=== PATIENT | male | born 1985 | race Caucasian/White ===

== ENCOUNTER 2018-11-05 18:46 | Emergency (ER) | payer MEDICAID, OTHER ==
[~2018-11-05] VITALS: Ht 193 cm; Wt 76.2 kg
[~2018-11-05 18:46] MED LIST: ASPI81TA52 PO; CYCL-1 PO; FLO0.4C PO; HYDR2TAB28 PO; METO-467 PO; ONDA4TAB6 PO; VANC1VIA21 IV; VANC1VIA4 IV
[2018-11-05 18:54] VITALS: BP 185/88
== END 2018-11-06 04:45 | disposition left against medical advice (07) ==
LOC: ER 18:47
DX: M79.89 Other specified soft tissue disorders (principal); Z53.21 Procedure and treatment not carried out due to patient leaving prior to being seen by health care provider

== ENCOUNTER 2021-08-31 04:02 | Inpatient (IN) | payer MEDICAID, OTHER ==
[~2021-08-31] VITALS: Ht 193 cm; Wt 97.5 kg
[~2021-08-31 04:02] MED LIST changes: -VANC1VIA21 IV; +VANC1VIA38 IV
[2021-08-31] MEDS ORDERED: vancomycin/NS 1 GM ADD-VANTAGE 250 ML IV ONE ×2 (06:30→15:40)
[2021-08-31] MEDS ORDERED: piperacillin/tazo 4.5gm/100ml 100 ML IV ONE (06:35)
[2021-08-31] MEDS ORDERED: normal saline 1000ML IV soln IV ONE (09:20)
[2021-08-31 09:21] LABS: BASOPHILS # (AUTO) 0.1 X10'3 (0-0.2); BASOPHILS % (AUTO) 0.6 % (0-1); EOSINOPHILS # (AUTO) 0.2 X10'3 (0-0.9); EOSINOPHILS % (AUTO) 1.9 % (0-6); HEMATOCRIT 37.5 % (42.0-52.0); HEMOGLOBIN 12.8 g/dl (14.0-17.9); LYMPHOCYTES # (AUTO) 1.6 X10'3 (1.1-4.8); LYMPHOCYTES % (AUTO) 15.1 % (21-51); MEAN CORPUSCULAR HEMOGLOBIN 28.4 PG (27.0-31.0); MEAN CORPUSCULAR HGB CONC 34.1 g/dL (33.0-36.5); MEAN CORPUSCULAR VOLUME 83.3 FL (78-98); MEAN PLATELET VOLUME 7.7 FL (7.4-10.4); MONOCYTES # (AUTO) 1.4 X10'3 (0-0.9); NEUTROPHILS # (AUTO) 7.4 X10'3 (1.8-7.7); NEUTROPHILS % (AUTO) 69.4 % (42-75); PLATELET COUNT 361 X10'3 (140-440); RED CELL DISTRIBUTION WIDTH 13.7 % (11.5-14.5); WHITE BLOOD COUNT 10.7 X10'3 (4.5-11.0)
[2021-08-31 09:23] LABS: ALBUMIN 3.6 G/DL (3.4-5.0); ANION GAP 6 (8-16); BLOOD UREA NITROGEN 19 MG/DL (7-18); BUN/CREATININE RATIO 20.9 (5.4-32.0); CHLORIDE 101 MMOL/L (99-107); CREATININE 0.91 MG/DL (0.60-1.10); GLUCOSE 111 MG/DL (70-104); SODIUM 137 MMOL/L (135-145); eGFR > 90 ML/MIN
[2021-08-31 09:33] LABS: APTT 33 SECONDS (22-32)
--- NOTE | 2021-08-31 10:00 | NUR ---
pt's wrist where vancomycin is running in is red and hot to touch. iv line flushed with NS. md and pharmacist informed. will run vanco in at a slower rate per pharmacy.
[2021-08-31] MEDS ORDERED: acetaminophen 325mg tablet PO PRN ×2 (10:35)
[2021-08-31] MEDS ORDERED: morphine 2 MG/ML inj. syringe IV PRN ×3 (10:35→15:50)
[2021-08-31] MEDS ORDERED: potassium Cl 20 mEq SR tablet PO PRN ×2 (10:35)
[2021-08-31] MEDS ORDERED: magnesium 2GM in 50ml NS 50 ML IV PRN (10:35)
[2021-08-31] MEDS ORDERED: magnesium hydroxide 30ml (MOM) UD suspension PO PRN (10:35)
[2021-08-31] MEDS ORDERED: mag hydrox/Alum hydrox/simeth 30ml oral suspension PO PRN (10:35)
[2021-08-31] MEDS ORDERED: HYDROcodone/acetaminophen 10/325mg tab PO PRN (10:35)
[2021-08-31] MEDS ORDERED: ondansetron/PF 4mg/2ml inj IV PRN ×2 (10:35→15:50)
[2021-08-31] MEDS ORDERED: potassium CL 10mEq/100ml bag 100 ML IV PRN (10:35)
[2021-08-31] MEDS ORDERED: dextrose 5%-1/2 normal saline 1,000 ML IV SCH (10:35)
[2021-08-31] MEDS ORDERED: magnesium 4gm in 100ml NS 100 ML IV PRN (10:35)
[2021-08-31] MEDS ORDERED: HYDROcodone/acetaminophen 5mg/325mg tablet PO PRN (10:35)
[2021-08-31] MEDS ORDERED: magnesium Cl slow-release 64mg tablet PO PRN (10:35)
[2021-08-31] MEDS ORDERED: clindamycin 600mg/D5W 50ml 50 ML IV SCH (10:42)
[2021-08-31] MEDS ORDERED: METH-603 PO (11:14)
[2021-08-31 12:41] LABS: MAGNESIUM 2.2 MG/DL (1.5-2.4)
[2021-08-31 13:24] LABS: MAGNESIUM 2.2 MG/DL (1.5-2.4)
[2021-08-31] MEDS ORDERED: midazolam 1 mg/ML 2ml injection ONE (15:07)
[2021-08-31] MEDS ORDERED: fentaNYL/PF 50MCG/1 ML 2ML syringe ONE (15:10)
[2021-08-31] MEDS ORDERED: dexamethasone sod phosphate 4mg/ml inj. ONE (15:18)
[2021-08-31] MEDS ORDERED: ondansetron/PF 4mg/2ml inj ONE (15:18)
[2021-08-31] MEDS ORDERED: LIDOcaine 2% (20mg/ml) 5ml vial ONE (15:18)
[2021-08-31] MEDS ORDERED: propofol inj 20 ML IV ONE (15:18)
[2021-08-31] MEDS ORDERED: ROPIVAcaine 0.5% (5mg/ml) 30ml vial IJ ONE (15:30)
[2021-08-31] MEDS ORDERED: ROPIVAcaine 0.5% (5mg/ml) 30ml vial ONE (15:35)
[2021-08-31 15:50] VITALS: BP 128/69
[2021-08-31] MEDS ORDERED: hydrALAZINE 20mg/ml inj. IV PRN (15:50)
[2021-08-31] MEDS ORDERED: ringers solution, lacted 1,000 ML IV SCH (15:50)
[2021-08-31] MEDS ORDERED: ketorolac trometh. 30mg/ml inj. IV ONE (15:50)
[2021-08-31] MEDS ORDERED: labetalol 20mg/4ml (5mg/ml) syringe IV PRN (15:50)
[2021-08-31] MEDS ORDERED: proCHLORperazine 10 MG/2 ml inj IV PRN (15:50)
[2021-08-31] MEDS ORDERED: meperidine/PF 25mg/ml syringe IV PRN ×3 (15:50)
[2021-08-31] MEDS ORDERED: morphine 4 MG/ML inj SYRINge IV PRN (15:50)
[2021-08-31] MEDS ORDERED: acetaminophen 1,000mg/100ml IV 100 ML IV PRN (15:50)
--- NOTE | 2021-08-31 15:50 | NUR ---
Received patient from OR, report received from md. Patient waking up, dano pain, v/s wnl, neurovascular checks intact, scd on, 20g piv to LUE, dressing to RIGHT HAND CDI ELEVATED ON PILLOW
[2021-08-31 16:00] VITALS: BP 130/67
[2021-08-31 16:10] VITALS: BP 131/68
[2021-08-31 16:20] VITALS: BP 128/71
[2021-08-31 16:30] VITALS: BP 133/75
--- NOTE | 2021-08-31 16:30 | NUR ---
Patient sleepy but oriented x4 , dano pain, v/s wnl, neurovascular checks intact, scd on, 20g piv to LUE, dressing to RIGHT HAND CDI ELEVATED ON PILLOW. taken to 345[facility] with all belongings and hooked up to monitors in room and report given to RN who has taken over patient caRE.
--- NOTE | 2021-08-31 16:35 | NUR ---
Received pt via bed from recovery with SO at bedside. Pt asleep and snoring. dressing CDI. Bed low, call light in reach.
--- NOTE | 2021-08-31 18:12 | NUR ---
Patient in room [facility]. I have received report from CHIVO Sue and had the opportunity to ask questions and assume patient care.
--- NOTE | 2021-08-31 18:15 | NUR ---
Problems reprioritized. Patient report given, questions answered & plan of care reviewed with CHIVO Dimas.
[2021-08-31] MEDS ORDERED: docusate sod 100mg capsule PO SCH (20:00)
[2021-08-31] MEDS ORDERED: K and/or MAG REPLACEMENT MC SCH (20:00)
--- NOTE | 2021-08-31 20:22 | NUR ---
1931 I was in patients room giving medications, and doing assessment. Girlfriend was in his room as well and I told her visiting hours where over. Patient asked if he could go to his car to get phone watch leader. I informed him that he could not leave the floor. After leaving patients room I informed the charge nurse that he might try and leave so we need to just keep an eye on him. 2014 Charge nurse informed me that he had left and his IV was taken out, his belongings were also gone. Charge nurse Nina informed security. Security saw patient and girlfriend leave through the door by pharmacy on video. Dr Sepulveda made aware.
== END 2021-08-31 20:15 | disposition left against medical advice (07) | DRG 316 ==
LOC: ER 04:03 → ED HOLD 10:37 → SUR 3N 16:21
PROVIDERS: ADMIT Internal Medicine; ATTEND Internal Medicine
PROC: 0JBJ0ZZ Excision of Right Hand Subcutaneous Tissue and Fascia, Open Approach (ICD-10-PCS; principal; 2021-08-31 14:58)
DX: M65.841 Other synovitis and tenosynovitis, right hand (principal); F12.90 Cannabis use, unspecified, uncomplicated; L03.113 Cellulitis of right upper limb; F14.90 Cocaine use, unspecified, uncomplicated; Z53.29 Procedure and treatment not carried out because of patient's decision for other reasons; Z20.822 Contact with and (suspected) exposure to COVID-19; L02.511 Cutaneous abscess of right hand; F15.90 Other stimulant use, unspecified, uncomplicated; F17.210 Nicotine dependence, cigarettes, uncomplicated; Z79.899 Other long term (current) drug therapy
CPT/HCPCS: 36415; 73130; 80048; 83605; 83735; 84132; 84145; 85025; 85610; 85730; 87040; 87070; 87077; 87186; 87635; 96361; 96365; 96368; 99285; A4215; A4618; A6449; A7000; C9803; G0378; J1100; J2250; J2405; J2543; J2704; J2795; J3010; J3370; J3490; J7030; J7042; J7120